=== PATIENT | male | born 1990 ===

== ENCOUNTER 2017-07-31 11:23 | Emergency (ER) | payer SELFPAY ==
[2017-07-31 11:36] VITALS: RESP 20; TEMP 97.2; O2SAT 97
[2017-07-31 11:40] VITALS: BP 132/107; PULSE 96
== END 2017-07-31 12:46 | disposition home or self-care (01) | DRG 394 ==
LOC: ED 11:23
DX: K62.89 Other specified diseases of anus and rectum (principal); K92.1 Melena
CPT/HCPCS: 99282

== ENCOUNTER 2017-08-24 14:28 | Emergency (ER) | payer SELFPAY ==
[2017-08-24 14:28] VITALS: O2SAT 97
[2017-08-24 14:52] VITALS: BP 124/70; PULSE 82; RESP 16; TEMP 96.7
== END 2017-08-24 16:01 | disposition home or self-care (01) | DRG 203 ==
LOC: ED 14:28
DX: J20.9 Acute bronchitis, unspecified (principal); J01.10 Acute frontal sinusitis, unspecified; R05 Cough
CPT/HCPCS: 87804; 99282